=== PATIENT | female | born 1965 | race Hispanic/Latino ===

== ENCOUNTER 2023-05-22 20:12 | Emergency (ER) | payer SELFPAY ==
[2023-05-22 20:24] VITALS: BP 182/92
[2023-05-22 21:02] VITALS: BMI 36.9
--- NOTE | 2023-05-22 22:50 | ED.GENMED ---
History of Present Illness
General
Chief Complaint: Dental Problem
Source: patient
Exam Limitations: none
Time Seen by Provider: 05/22/23 22:45
Travel History
Have you had any contact with someone who has COVID-19?: No
Do you have any symptoms of coronavirus? Fever > 100 degrees, chills, cough, shortness of breath, sore throat, loss of taste or smell, muscle aches, or headache?: No
History of Present Illness
History of Present Illness:
See MDM
Past History
Past History
ED Past Medical History: NIDDM
ED Past Surgical History:
Social History
Tobacco: Non-smoker
Alcohol: None
Phy Exam
Physical Exam
Physical Exam:
See MDM
Course
Orders/Labs/Results
Orders:
Orders
05/22/23 22:49
Amoxicillin 875 mg/Clav 125 mg [Augmentin 875 mg/125 mg] 1 tablet PO NOW STA
Ibuprofen [Motrin] 600 mg PO NOW STA
Vital Signs
Initial and Last Documented VS:
Initial Vital Signs
Temp Pulse Resp BP Pulse Ox
98.5 F 76 18 182/92 98
05/22/23 20:24 05/22/23 20:24 05/22/23 20:24 05/22/23 20:24 05/22/23 20:24
Last Documented Vital Signs
Temp Pulse Resp BP Pulse Ox
98.5 F 76 18 182/92 98
05/22/23 20:24 05/22/23 20:24 05/22/23 20:24 05/22/23 20:24 05/22/23 20:24
MDM/Problems Addressed
Differential Diagnosis Includes:
HPI and MDM Narrative:
57-year-old female presenting for evaluation of dental pain. Over the past day or so, she has noted increased sensitivity to cold to her left central upper incisor. Patient states she is taking a Italian pain medicine.
On exam, there is no gingival abscess. Given the significant cold sensitivity, we discussed the possibility of a periapical abscess. Will start Augmentin and start NSAIDs. Patient states she will follow-up with an [facility] dental
evaluation
Physical exam
General: Well appearing and non-toxic
HEENT: protecting airway. No gingival abscess noted
Neck: appears supple
CV: No evidence of cyanosis
Resp: No accessory muscle use
Abd: Non-distended
Extremities: No deformities
Neuro: alert
Psych: Normal affect
Skin: Intact
Problems Addressed including Acute and Chronic Conditions affecting care:
1. Dental pain
Acuity: acute
Prognosis: stable
Details: Given the cold sensitivity, will start Augmentin with concern for periapical abscess
Differential Diagnosis (but not limited to):
Testing considered:
Drug therapy (if applicable): OTC meds, please see d/c instruction regarding Rx drugs
Amount and/or Complexity of Data Reviewed
Clinical info obtained from: Patient
External data reviewed: N/A
Labs I independently reviewed (but not limited to): N/A
Radiology: N/A
Pulse Ox: not hypoxic
EKG independently reviewed: N/A
Bpo Specialist: N/A
Critical Care: N/A
Risk of Complication:
Social Determinants of health: Good social support
Discussed with other providers: N/A
Escalation of Care includes Admit/Obs: After being observed in the Emergency Department, pt stable for discharge.
Occasional wrong word or 'sound a like' substitutions may have occurred due to the inherent limitations of voice recognition software. Read the chart carefully and recognize, using context, where substitutions have occurred.
*Critical Care Note
Total Time (30-74mins, 75-104mins- exclusive of procedures): Not Applicable
ED Attending Note
-
Portions of this chart may have been created with voice recognition software.� Occasional wrong word or��sound alike� substitutions may have occurred due to the inherent limitations of voice recognition software.
Discharge Plan
Departure
Patient Disposition: Home (Routine Discharge)
Date of Disposition: 05/22/23
Time of Disposition: 22:50
Patient with high blood pressure during this ER visit?: Yes
Discharge Problem:
Pain, dental
Instructions: Dental Pain (DC), BLOOD PRESSURE
Prescriptions:
New
diclofenac potassium 50 mg tablet
50 mg PO BID Qty: 20 0RF
amoxicillin-pot clavulanate 875-125 mg tablet
1 tab PO BID Qty: 14 0RF
Referrals:
NONE,* [Family Provider] -
Activity Restrictions/Additional Instructions:
Please return for any worsening symptoms.
You may return at any time if you have further concerns.
Please follow-up with the [facility] clinic.
Thank you for choosing [facility].
Interventions
Interventions:
*Risk Screen - Suicide Last Done: 05/22/23 21:02
*General Assessment Last Done: 05/22/23 20:24
*Neglect/Abuse Screening Last Done: 05/22/23 21:02
ED- Fall Risk Assessment Last Done: 05/22/23 21:02
*ED COVID-19 Vaccine History Last Done: 05/22/23 20:24
[2023-05-22] MEDS: MOTRIN 600 MG PO (22:57)
[2023-05-22] MEDS: AUGMENTIN 875 MG/125 MG 1 TABLET PO (22:57)
== END 2023-05-22 23:02 | disposition home or self-care (01) ==
LOC: EMR 20:12
PROVIDERS: EMERGENCY PHYSICIAN Student in an Organized Health Care Education/Training Program
DX: K08.89 Other specified disorders of teeth and supporting structures (principal); E11.9 Type 2 diabetes mellitus without complications
CPT/HCPCS: 99282